=== PATIENT | female | born 1975 | race Caucasian/White ===

== ENCOUNTER → 2020-12-21 | Outpatient (CLI) | payer BC | LOC: EMI 13:00 | DX: G43.009 Migraine without aura, not intractable, without status migrainosus (principal); R26.0 Ataxic gait; R42 Dizziness and giddiness | CPT/HCPCS: 70551 ==

== ENCOUNTER → 2021-01-18 | Outpatient (CLI) | payer BC | LOC: SLEEP 16:14 | DX: G47.9 Sleep disorder, unspecified (principal) | CPT/HCPCS: 95810 ==